=== PATIENT | male | born 1980 | race Caucasian/White ===

== ENCOUNTER 2019-06-22 08:46 | Emergency (ER) | payer OTHER ==
--- NOTE | 2019-06-22 09:12 | ER Document Report ---
ED Medical Screen (RME) - General Chief Complaint: Near Syncope Stated Complaint: POSSIBLE SYNC Time Seen by Provider: 06/22/19 09:04 - HPI Notes: 06/22/19 09:09 38-year-old male to the emergency department with complaints of near syncopal event that occurred just prior to arrival. States he was talking with a friend who said something funny when he got up and was laughing. He states that he felt acutely dizzy and like his eyes were moving and lots of different directions and as if he was going to tunnel out and passed out. He also states that he has had left-sided chest pain for the past 3 days that seems to be worse with a big deep breath. Of note, he did just move here from [facility] a week and a half ago. He states that he flew here. He denies any leg swelling. He states that he has not had any fevers or chills. He is a former smoker. He uses marijuana but no other illicit drugs. He denies any other medical problems. I performed a brief medical screening exam on the patient determined that he will need further evaluation by main side provider. I placed initial orders to help expedite his care. - Related Data Allergies/Adverse Reactions: No Known Allergies Allergy (Verified 06/22/19 09:04) Physical Exam - Vital signs Vitals: Temp Pulse Resp BP Pulse Ox 98.6 F 78 14 147/95 H 99 06/22/19 08:50 06/22/19 08:50 06/22/19 08:50 06/22/19 08:50 06/22/19 08:50 Course - Vital Signs Vital signs: Temp Pulse Resp BP Pulse Ox 98.6 F 78 14 147/95 H 99 06/22/19 08:50 06/22/19 08:50 06/22/19 08:50 06/22/19 08:50 06/22/19 08:50
[2019-06-22 09:44] LABS: ABSOLUTE BASOPHILS # (AUTO) 0.1 10^3/uL (0.0-0.2); ABSOLUTE EOSINOPHILS # (AUTO) 0.2 10^3/uL (0.0-0.6); ABSOLUTE LYMPHOCYTES (AUTO) 2.6 10^3/uL (0.5-4.7); ABSOLUTE MONOCYTES (AUTO) 0.6 10^3/uL (0.1-1.4); ABSOLUTE NEUT (AUTO) 3.9 10^3/uL (1.7-8.2); BASOPHILS % (AUTO) 0.8 % (0-2); EOSINOPHILS % (AUTO) 2.9 % (0-6); HEMATOCRIT 49.4 % (37.9-51.0); HEMOGLOBIN 17.6 g/dL (13.5-17.0); LYMPHOCYTES % (AUTO) 35.2 % (13-45); MEAN CORPUSCULAR HEMOGLOBIN 29.8 pg (27.0-33.4); MEAN CORPUSCULAR HGB CONC 35.5 g/dL (32.0-36.0); MEAN CORPUSCULAR VOLUME 84 fl (80-97); MONOCYTES % (AUTO) 7.9 % (3-13); PLATELET COUNT 148 10^3/uL (150-450); RED BLOOD COUNT 5.89 10^6/uL (4.35-5.55); RED CELL DISTRIBUTION WIDTH 14.5 % (11.5-14.0); SEGMENTED NEUTROPHILS % (AUTO) 53.2 % (42-78); TOTAL CELLS COUNTED % (AUTO) 100 %; WHITE BLOOD COUNT 7.3 10^3/uL (4.0-10.5)
--- NOTE | 2019-06-22 09:55 | RADIOLOGY REPORT (SQ) ---
EXAM DESCRIPTION: CHEST 2 VIEWS COMPLETED DATE/TIME: 06/22/2019 9:37 am REASON FOR STUDY: chest pain dizziness COMPARISON: None. EXAM PARAMETERS: NUMBER OF VIEWS: two views TECHNIQUE: Digital Frontal and Lateral radiographic views of the chest acquired. RADIATION DOSE: NA LIMITATIONS: none FINDINGS: LUNGS AND PLEURA: No opacities, masses or pneumothorax. No pleural effusion. MEDIASTINUM AND HILAR STRUCTURES: No masses or contour abnormalities. HEART AND VASCULAR STRUCTURES: Heart normal size. No evidence for failure. BONES: No acute findings. HARDWARE: None in the chest. OTHER: No other significant finding. IMPRESSION: NO ACUTE RADIOGRAPHIC FINDING IN THE CHEST. TECHNICAL DOCUMENTATION: JOB ID: [id number] [employer]- All Rights Reserved Reading location - IP/workstation name: [email or web address]
[2019-06-22 09:59] LABS: ALKALINE PHOSPHATASE 56 U/L (38-126); ANION GAP 11 (5-19); ASPARTATE AMINO TRANSFERASE 30 U/L (17-59); BLOOD UREA NITROGEN 13 mg/dL (7-20); CALCIUM 9.6 mg/dL (8.4-10.2); CARBON DIOXIDE 24 mmol/L (22-30); CHLORIDE 104 mmol/L (98-107); GLUCOSE 89 mg/dL (75-110); POTASSIUM 4.2 mmol/L (3.6-5.0); TOTAL PROTEIN 7.9 g/dL (6.3-8.2)
[2019-06-22] MEDS ORDERED: NORMAL SALINE 1000 ML 1,000 ML IV ONE (12:35)
--- NOTE | 2019-06-22 12:35 | ER Document Report ---
ED Syncope and Near Syncope - General Chief Complaint: Near Syncope Stated Complaint: POSSIBLE SYNC Time Seen by Provider: 06/22/19 09:04 Notes: Patient is a 38-year-old male who presents the emergency department with a chief complaint of a syncopal episode. He was sitting with his friends and laughing and then he all of a sudden fell backwards. He did not hit his head and remembers the whole event. He ended up feeling a little dizzy. Once he got up, he was feeling normal. Patient denies any significant past medical history. Patient has never had these episodes before. Denies any shortness of breath, difficulty breathing, chest pain, or any other symptoms. - Related Data Allergies/Adverse Reactions: No Known Allergies Allergy (Verified 06/22/19 09:04) Past Medical History - Social History Smoking Status: Current Every Day Smoker Frequency of alcohol use: Social Drug Abuse: Marijuana Family History: Reviewed & Not Pertinent Patient has suicidal ideation: No Patient has homicidal ideation: No Review of Systems - Review of Systems Notes: REVIEW OF SYSTEMS: CONSTITUTIONAL : Denies recent illness. Denies recent unintentional weight loss. Denies fever, chills, or sweats. EENT: Denies eye, ear, throat, or mouth pain, discharge, or symptoms. Denies nasal or sinus congestion. CARDIOVASCULAR: Denies chest pain. RESPIRATORY: Denies shortness of breath, cough, congestion, difficulty breathing, or wheezing. GASTROINTESTINAL: Denies nausea, vomiting, and diarrhea. Denies abdominal pain. Denies constipation. GENITOURINARY: Denies difficulty urinating, burning, blood in urine, urgency or frequency. MUSCULOSKELETAL: Denies neck and back pain. Denies joint pain or swelling. SKIN: Denies rash, itchiness, or lesions HEMATOLOGIC : Denies easy bruising or bleeding. LYMPHATIC: Denies swollen, painful, enlarged glands. NEUROLOGICAL: Denies no numbness or tingling denies weakness. Denies headache. Denies altered mental status. Denies alteration in speech. See HPI. PSYCHIATRIC: Denies stress, anxiety, alteration in sleep patterns, or depression. All other systems reviewed and negative. Physical Exam - Vital signs Vitals: Temp Pulse Resp BP Pulse Ox 98.6 F 78 14 147/95 H 99 06/22/19 08:50 06/22/19 08:50 06/22/19 08:50 06/22/19 08:50 06/22/19 08:50 - Notes Notes: PHYSICAL EXAMINATION: GENERAL: Appears well, healthy, well-nourished, no acute distress. HEAD: Normocephalic, atraumatic. EYES: PERRL, conjunctiva normal, all extraocular movements intact, sclera nonicteric ENT: Moist mucous membranes. Edema and erythema noted to nasal mucosa. NECK: Supple, no noticeable swelling, redness, rash. Normal range of motion. LUNGS: Equal breath sounds bilaterally and clear to auscultation. No wheezes rales or rhonchi. CARDIOVASCULAR: S1-S2, regular rate, regular rhythm. Radial pulses 2+, normal. ABDOMEN: Normoactive bowel sounds. Soft, nontender, no guarding, no rebound tenderness, and no masses palpated. EXTREMITIES: Normal strength and range of motion, no pitting or edema. No cyanosis. NEUROLOGICAL: Moves all extremities upon command. Strength 5/5 in all extremities. PSYCH: Normal mood, normal affect. SKIN: Warm, dry. No rash, lesions, ulcerations noted. Normal skin turgor. Course - Re-evaluation Re-evalutation: Patient's hematology shows a hemoglobin of 17.6 and hematocrit of 49.4. Patient has dry lips. He received a liter of fluids here in the emergency department. D-dimer ordered in triage is negative. Chest X-ray was normal. Chemistries are unremarkable. Urinalysis only shows a small amount of blood. Patient has edema and erythema noted to nasal mucosa. Will be started on cetirizine and Flonase. I have a very low suspicion for any life-threatening etiology at this time. EKG is normal. Follow-up precautions were given. Verbal discharge instructions were given to the patient. They verbalized understanding. They are stable for discharge. - Vital Signs Vital signs: Temp Pulse Resp BP Pulse Ox 98.1 F 67 18 134/87 H 98 06/22/19 14:35 06/22/19 14:35 06/22/19 14:35 06/22/19 14:35 06/22/19 14:35 - Laboratory Result Diagrams: 06/22/19 09:26 06/22/19 09:26 Laboratory results interpreted by me: 06/22/19 06/22/19 09:26 13:35 RBC 5.89 H Hgb 17.6 H RDW 14.5 H Plt Count 148 L Urine Blood SMALL H - EKG Interpretation by Me Additional EKG results interpreted by me: 06/22/19 12:35 Sinus rhythm. Heart rate is 67. [place] 176; QRS 82; QT 384; QTc 406. No ST elevations or depressions noted. Discharge - Discharge Clinical Impression: Near syncope, Dehydration Condition: Stable Disposition: HOME, SELF-CARE Additional Instructions: You were seen today in the emergency department for a near syncopal episode. Your labs show that you are slightly dehydrated. You received IV fluids here in the emergency department. Please start Flonase and cetirizine to help with your nasal draining. You can take ibuprofen 600 mg and acetaminophen 1000 mg every 6 hours as needed for any pain. Prescriptions: Cetirizine HCl [All Day Allergy] 10 mg PO DAILY #30 tablet Fluticasone Propionate [Flonase Nasal Fulshear 50 Mcg/Fulshear 16 gm] 2 sprays NASL DAILY #1 inhaler Forms: Return to Work
[2019-06-22 13:53] LABS: APPEARANCE,URINE CLEAR; BILIRUBIN,URINE NEGATIVE (NEGATIVE); COLOR,URINE YELLOW; GLUCOSE, URINE NEGATIVE (NEGATIVE); KETONES,URINE NEGATIVE (NEGATIVE); LEUKOCYTE ESTERASE,URINE NEGATIVE (NEGATIVE); NITRITE,URINE NEGATIVE (NEGATIVE); PROTEIN,URINE NEGATIVE (NEGATIVE); UROBILINOGEN,URINE NEGATIVE mg/dL (<2.0)
[2019-06-22 14:36] VITALS: BP 134/87
--- NOTE | 2019-06-22 23:55 | EKG REPORT ---
SEVERITY:- NORMAL ECG - SINUS RHYTHM : Confirmed by: Derrek Valencia 22-Jun-2019 23:55:13
== END 2019-06-22 14:36 | disposition home or self-care (01) ==
LOC: ER 08:46
DX: R55 Syncope and collapse (principal); E86.0 Dehydration; W19.XXXA Unspecified fall, initial encounter; F17.200 Nicotine dependence, unspecified, uncomplicated
CPT/HCPCS: 93005; 99284; 96360; 36415; 85025; 80053; 81001; 84484; 85379; 71046; 93010; J7030